=== PATIENT | female | born 1990 | race Caucasian/White ===

== ENCOUNTER → 2017-08-18 14:00 | Outpatient (CLI) | payer OTHER, SELFPAY ==
[2017-08-25 09:10] LABS: HPV Reflexed? NOT INDICATED
== END ==
PROVIDERS: Family Provider Family Medicine; PCP Family Medicine; Visit Provider Nurse Practitioner Adult Health
DX: Z01.419 Encounter for gynecological examination (general) (routine) without abnormal findings (principal)
CPT/HCPCS: 88175; G0145

== ENCOUNTER → 2018-05-21 09:01 | Outpatient (CLI) | payer SELFPAY ==
[2018-05-21 10:16] LABS: Internal QC Validated? YES +Cl - CLEAR BKGD
[2018-05-21 10:21] LABS: Pregnancy, Urine Negative Negative
== END ==
PROVIDERS: Family Provider Family Medicine; PCP Family Medicine; Referring Provider Physician Assistant; Visit Provider Physician Assistant
DX: L70.8 Other acne (principal); Z79.899 Other long term (current) drug therapy; B36.8 Other specified superficial mycoses
CPT/HCPCS: 81025

== ENCOUNTER → 2018-06-25 11:12 | Outpatient (CLI) | payer OTHER, SELFPAY ==
[2018-06-25 12:19] LABS: Internal QC Validated? YES +Cl - CLEAR BKGD
[2018-06-25 12:24] LABS: Pregnancy, Urine Negative Negative
== END ==
PROVIDERS: Family Provider Family Medicine; PCP Family Medicine; Referring Provider Physician Assistant; Visit Provider Physician Assistant
DX: L70.0 Acne vulgaris (principal); Z79.899 Other long term (current) drug therapy
CPT/HCPCS: 81025

== ENCOUNTER → 2018-07-30 11:14 | Outpatient (CLI) | payer OTHER, SELFPAY ==
[2018-07-30 17:58] LABS: Internal QC Validated? YES +Cl - CLEAR BKGD; Pregnancy, Urine Negative Negative
== END ==
PROVIDERS: Family Provider Family Medicine; PCP Family Medicine; Referring Provider Physician Assistant; Visit Provider Physician Assistant
DX: L70.0 Acne vulgaris (principal); Z79.899 Other long term (current) drug therapy
CPT/HCPCS: 81025

== ENCOUNTER → 2018-09-03 12:57 | Outpatient (CLI) | payer OTHER, SELFPAY ==
[2018-09-03 14:17] LABS: Internal QC Validated? YES +Cl - CLEAR BKGD; Pregnancy, Urine Negative Negative
== END ==
PROVIDERS: Family Provider Family Medicine; PCP Family Medicine; Referring Provider Physician Assistant; Visit Provider Physician Assistant
DX: L70.0 Acne vulgaris (principal); Z79.899 Other long term (current) drug therapy
CPT/HCPCS: 81025

== ENCOUNTER → 2020-08-13 | Outpatient (CLI) | payer BC, SELFPAY ==
[2020-08-13 18:01] LABS: Bacteria 0 SEEN /hpf (None Seen); Mucous, Urine 0 SEEN /hpf (<or=2+); White Blood Cells 0 SEEN /hpf (0-5)
[2020-08-13 18:06] LABS: Color, Urine Yellow (Yellow); Glucose, Dipstick Normal (Normal); Ketone-Dipstick Negative (Negative); Leukocyte Esterase-Dipstick Negative /ul (Negative); Nitrite-Dipstick Negative (Negative); Occult Blood-Urine 10 /ul (Negative); Protein-Dipstick 15 mg/dl (Negative); Specific Gravity, Urine 1.015 (1.002-1.030); Urine Bilirubin Dipstick Negative (Negative); Urine Clarity Clear (Clear); Urine Urobilinogen Normal (Normal); Urine pH 6.5 (5.0 - 8.0)
[2020-08-13 18:16] LABS: Red Blood Cells-Urine 0-5 SEEN /hpf (0-5); Squamous Epithelial Cells - UA 0-5 SEEN /hpf (5-10)
== END | disposition home or self-care (01) ==
LOC: LABSPEC 17:59
PROVIDERS: PCP Family Medicine; Visit Provider Physician Assistant
DX: R30.0 Dysuria (principal); R35.0 Frequency of micturition
CPT/HCPCS: 81001; 87086

== ENCOUNTER → 2021-03-28 | Outpatient (CLI) | payer BC, SELFPAY | END | disposition home or self-care (01) | LOC: LABSPEC 10:39 | PROVIDERS: PCP Family Medicine; Visit Provider Physician Assistant | DX: Z20.822 Contact with and (suspected) exposure to COVID-19 (principal) | CPT/HCPCS: 87635; U0005; U0003 ==

== ENCOUNTER → 2021-03-31 | Outpatient (CLI) | payer BC, SELFPAY | END | disposition home or self-care (01) | PROVIDERS: PCP Family Medicine; Referring Provider Physician Assistant Medical; Visit Provider Physician Assistant Medical | DX: U07.1 COVID-19 (principal) | CPT/HCPCS: 87635; U0005; U0003 ==

== ENCOUNTER 2021-08-24 14:58 | Emergency (ER) | payer BC, SELFPAY ==
[2021-08-24 14:59] VITALS: BP 126/46; PULSE 79; RESP 16; TEMP 36.8; O2SAT 98; BMI 19.2
--- NOTE | 2021-08-24 15:23 | EX.ED.GENINJ ---
HPI History of Present Illness Chief Complaint: Head Injury Informant: patient Onset/Context/Timing Onset: Days (4) Mechanism/Context: Blunt Injury Quality of Pain: Aching (And sore) Location: Bilateral neck and shoulders, headache Current Severity: Moderate Maximum Severity: Moderate Worsened by: Moving head/neck especially laterally with ear-shoulder Relieved by: Remaining still. Mild relief with Tylenol. Associated Symptoms Associated Symptoms: Negative for Parasthesias, Weakness, Loss of function, Inability to ambulate, Loss of consciousness and Amnesia Narrative Narrative: Patient was bent over in a bedroom 4 days ago, she lost her balance and then tried to catch herself, she extended her neck, bringing her head up from bending over, accidentally hitting the back of her head on the nearby sleigh bed which was wood in the process. She did not lose consciousness or get dazed or have any other neurologic symptoms, she just had basically scalp pain/contusion that her for couple days, her neck gradually started hurting on both sides and she saw PCP, was given some stretching exercises to do. Now over the last day or so she has gradually developed a headache that goes around her head. Neck is still sore and hurts to move, especially since she has been doing some of these exercises. She denies any neurologic symptoms, changes in vision, problems walking, nausea, vomiting, or any other symptoms. [facility] Medical History Chronic neck and back pain Fatigue Seasonal allergies Tension headache, chronic Medical History no medical history Home Medications cetirizine 10 mg capsule 10 mg PO DAILY 02/11/20 [History Last Taken Unknown] escitalopram oxalate 10 mg tablet mg PO 02/11/20 [History Last Taken Unknown] norethindrone 1 mg-ethinyl estradiol 35 mcg tablet tab PO 02/11/20 [History Last Taken Unknown] spironolactone 08/24/21 [History Last Taken Unknown] Allergy/AdvReac Type Severity Reaction Status Date / Time adhesive Allergy Rash Verified 08/24/21 15:01 Family History Other Arthritis Cancer Diabetes Gout Heart disease Surgical History no surgical history Social History Smoking Status: Never smoker alcohol intake: current alcohol intake frequency: a few times a week ROS ROS ED Constitutional Constitutional ED: Denies chills or fever(s) Eyes Eyes: Denies change in vision or diplopia ENT ENT ED: Denies ear pain, epistaxis, facial pain or rhinorrhea Cardiovascular Cardiovascular: Denies chest pain or palpitations Respiratory/Chest Respiratory/Chest: Denies cough or dyspnea Gastrointestinal Gastrointestinal: Denies abdominal pain, diarrhea, melena, nausea or vomiting Genitourinary Genitourinary ED: Denies dysuria or hematuria Musculoskeletal Musculoskeletal: Denies back pain, extremity pain or neck pain Integumentary Denies abscess, Abrasions, laceration or rash Neurologic Neurologic: Denies confusion, headache(s), paresthesias or weakness EXAM Physical Exam Const Vital Signs: 08/24/21 14:59 08/24/21 15:04 Temperature 98.2 F Temperature Source Temporal Pulse Rate 79 Respiratory Rate 16 Respiratory Effort Normal Respiratory Depth Normal Respiratory Pattern Normal Blood Pressure 126/46 H Blood Pressure Mean 72 Pulse Ox 98 Oxygen Delivery Method Room Air Positive well nourished and well developed General Appearance ED: well developed and NAD HEENT Reports TM's clear and nasal mucous membranes and turbinates normal atraumatic Face and Sinus: Negative for facial tenderness Tympanic Membrane ED: Yes TM's clear Eyes PERRL and EOMs intact bilaterally Visual Acuity: other Other Details: no entrapment or pain with extraocular movements Neck full ROM and supple Neck Narrative: Bilateral mild trapezius tenderness. No midline cervical tenderness. Full range of motion. Resp normal respiratory effort Extremity normal to inspection and full ROM General Extremety ED: Negative for tenderness Neuro oriented x3, CN's II-XII intact bilaterally, moves all extremities, no focal motor deficits, no sensory deficits noted and gait normal Catalina Coma Scale: document GCS findings Spontaneous Obeys Commands Oriented 15 Sensorium / Orientation: awake and alert Psych mental status grossly normal and thought process normal Skin no wounds Lesions: no lesions Rashes: no rashes MDM MDM MDM Narrative Medical decision making narrative: Patient reassured. She is through the observation. With regards to this relatively minor head injury, I do not think she needs a CT scan of her brain, nor her neck for that matter. I think her headache has come on 4 days later because it is a result of her cervical strain, which also came as a mild delay in symptoms. All of this is very common after this type of injury, the mechanism certainly could cause a myofascial cervical strain, which I think is the main issue. I recommend that she take ibuprofen and maybe hold off on some of the neck exercises for now, heat or ice whichever feels better would be reasonable, we discussed reasons to return for CT and she is comfortable with that plan. Discharge Plan Triage Chief Complaint: Head Injury ED Provider: Jorge Childress Dx/Rx/DC Orders Clinical Impression: Acute cervical myofascial strain, Contusion of scalp Instructions: ED Neck Sprain or Strain Prescriptions: No Action escitalopram oxalate 10 mg tablet PO RF: 0 norethindrone-ethin estradiol 1-35 mg-mcg tablet PO RF: 0 Zyrtec 10 mg capsule 10 mg PO DAILY RF: 0 spironolactone 100 mg tablet RF: 0 Primary Care Provider: Ivan Paulino Referrals: Ivan Paulino MD [Primary Care Provider] - 10-14 Days if not better Disposition Disposition: Home, Self Care
[2021-08-24] MEDS: Ibuprofen 600 MG Tablet PO (15:31)
== END 2021-08-24 15:35 | disposition home or self-care (01) ==
LOC: ED 15:34
PROVIDERS: Emergency Provider Emergency Medicine; Visit Provider Emergency Medicine
DX: S16.1XXA Strain of muscle, fascia and tendon at neck level, initial encounter (principal); S00.03XA Contusion of scalp, initial encounter; W01.190A Fall on same level from slipping, tripping and stumbling with subsequent striking against furniture, initial encounter; Y93.9 Activity, unspecified; Y92.9 Unspecified place or not applicable
CPT/HCPCS: 99283